=== PATIENT | male | born 1995 | race Caucasian/White ===

== ENCOUNTER → 2020-02-08 14:46 | Outpatient (BNVA) | payer OTHER, SELFPAY | PROVIDERS: Visit Provider Nurse Practitioner Family | DX: M79.631 Pain in right forearm (principal) | CPT/HCPCS: 73090 ==

== ENCOUNTER 2020-08-27 21:22 | Emergency (ER) | payer OTHER, SELFPAY ==
[2020-08-27 21:25] VITALS: BP 138/102; PULSE 102; RESP 18; TEMP 36.2; O2SAT 96; BMI 25.1
--- NOTE | 2020-08-27 21:25 | XR_ITS ---
WS: [id number] Left hand, 3 views portable, 08/27/2020 Clinical Data: injury Comparison: None. Findings: There is a vertical fracture of the proximal phalanx of left fourth finger. No other fractures are se en. The joint spaces are normal. The soft tissues are unremarkable. XR/XR hand LT min 3V* [id number] Impression: Undisplaced fracture of the base of the proximal phalanx of the left fourth fin talib.
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
[2020-08-27 21:34] VITALS: BP 148/86; PULSE 82; O2SAT 97
[2020-08-27 21:49] VITALS: BP 148/86; PULSE 89; O2SAT 98
[2020-08-27] MEDS: HYDROcodone-acetaminophen 5-325 mg Tablet 1 TAB PO (21:49)
--- NOTE | 2020-08-28 12:48 | DCPLANNER ---
manager report had message to schedule a follow up appointment for patient with ortho. manager report called the ortho clinic, spoke with [facility], gave clinic patients information. manager report was told that patients information would be printed and reviewed. Clinic will call patient with appointment information.
--- NOTE | 2020-09-04 12:36 | DCPLANNER ---
Patient had a follow up appointment scheduled for 09.03.[address] Mackey at [facility] - patient did attend appointment.
== END 2020-08-27 21:50 | disposition home or self-care (01) ==
LOC: ER 21:45
PROVIDERS: Emergency Provider Emergency Medicine
DX: S62.645A Nondisplaced fracture of proximal phalanx of left ring finger, initial encounter for closed fracture (principal); F17.210 Nicotine dependence, cigarettes, uncomplicated; W20.8XXA Other cause of strike by thrown, projected or falling object, initial encounter
CPT/HCPCS: 29130; 73130; 99283

== ENCOUNTER 2020-09-03 16:18 | Outpatient (CLI) | payer OTHER, SELFPAY | END 2020-09-03 16:19 | disposition home or self-care (01) | LOC: SPT 16:19 | PROVIDERS: Visit Provider Orthopaedic Surgery | DX: Z46.89 Encounter for fitting and adjustment of other specified devices (principal); S62.645D Nondisplaced fracture of proximal phalanx of left ring finger, subsequent encounter for fracture with routine healing; X58.XXXD Exposure to other specified factors, subsequent encounter | CPT/HCPCS: 97760; L3984 ==

== ENCOUNTER → 2023-07-05 18:40 | Outpatient (BNVA) | payer OTHER, SELFPAY | PROVIDERS: PCP Nurse Practitioner Family; Visit Provider Family Medicine | DX: S89.91XA Unspecified injury of right lower leg, initial encounter (principal); X58.XXXA Exposure to other specified factors, initial encounter | CPT/HCPCS: 73562 ==